=== PATIENT | male | born 1980 | race Caucasian/White ===

== ENCOUNTER 2016-11-19 11:43 | Emergency (ER) | payer OTHER ==
[~2016-11-19] VITALS: Ht 91.4 cm; Wt 53.9 kg
[~2016-11-19 11:43] MED LIST: ACETAMINOPHEN-1 EAC1 GT; ALBUTEROL S2 MG/5 ML GT; ALLERGY REL1 MG/1 ML GT; ANALGESIC325 MG G; Ascorbic Acid,Ester- PO; Aspirin E.C. PO; CARBAMAZEPINE100 MG PO; CORTEF5 MG GT; Claritin,Alavart GT; Cortef PO; DuoNeb IH; Folvite PO; HYDROCORTISONE5 MG PO; LEVOTHROID,SYN0.1 MG PO; LEVOXYL100 MCG GT; Levothroid,Synthroid GT; Lopressor GT; PHENOBARBI30 MG/7.5 GT; PHENOBARBI30 MG/7.5 PO; PHENOBARBITAL60 MG GT; PHENobarbital PO; PROVENTIL,VENTOL2 MG GT; Pepcid GT; Percocet 5/325,Endoc PO; Phenobarbital GT; RANITIDINE HCL150 MG GT; TEGRETOL GT; TEGRETOL100 MG GT; TEGRETOL100 MG PO; TEGretol PO; THERAGRAN5 ML GT; ZANTAC15 MG/ML GT; ZYRTEC GT; ZYRTEC SYRUP1 MG/ML GT; Zantac GT
[2016-11-19] MEDS ORDERED: OSMOLITE 1.2 C237 ML GT (12:01)
[2016-11-19] MEDS ORDERED: [UNRECOGNIZED DRUG - OTHER] GT (12:03)
[2016-11-19] MEDS ORDERED: NYSTATIN15 GM TP (12:04)
[2016-11-19] MEDS ORDERED: ASPIRIN81 M2 GT (12:05)
[2016-11-19] MEDS ORDERED: CERTA VITE9 MG/15 ML GT (12:05)
[2016-11-19] MEDS ORDERED: ALIGN4 MG GT (12:05)
[2016-11-19] MEDS ORDERED: FOLIC ACID1 MG GT (12:06)
[2016-11-19] MEDS ORDERED: CHILDREN'S5 MG/5 M1 GT (12:07)
[2016-11-19] MEDS ORDERED: PHENOBARBI30 MG/7.5 GT (12:08)
[2016-11-19] MEDS ORDERED: SIMVASTATIN40 MG GT (12:08)
[2016-11-19] MEDS ORDERED: VITAMIN D31000 UNIT GT (12:10)
[2016-11-19] MEDS ORDERED: HYDROCORTISONE10 MG GT (12:11)
[2016-11-19] MEDS ORDERED: METOPROLOL TART25 MG GT (12:13)
[2016-11-19] MEDS ORDERED: ASCORBIC ACID500 M3 GT (12:14)
[2016-11-19] MEDS ORDERED: TEGRETOL100 MG/5 M GT (12:16)
[2016-11-19] MEDS ORDERED: PREVACID SOLUTA30 MG GT (12:23)
[2016-11-19] MEDS ORDERED: LANSOPRAZOLE PO (13:09)
[2016-11-19 13:20] LABS: EOSINOPHIL (%) 1.9 % (0-5); EOSINOPHIL COUNT 0.1 K/uL (0-0.3); HEMATOCRIT 35.7 % (38.0-50.0); IMMATURE GRANULOCYTE (%) 0.4 % (0.0-0.7); INSTRUMENT ABS NEUTROPHIL CT 3.3 K/uL; LYMPHOCYTE COUNT 1.4 K/uL (1.0-2.8); MCH 33.6 PG (29.0-34.0); MCHC 34.7 G/DL (30.0-36.0); MCV 96.7 FL (86-99); MEAN PLAT.VOLUME 9.7 uM^3 (9.0-12.4); MONOCYTE (%) 7.1 % (3-12); MONOCYTE COUNT 0.4 K/uL (0-0.8); NEUTROPHIL (%) 62.7 % (45-76); NEUTROPHIL COUNT 3.3 K/uL (1.8-6.4); PLATELET COUNT 193 K/uL (156-360); RBC DIS.WIDTH-CV 11.2 % (11.8-14.6); RBC DIS.WIDTH-SD 40.1 % (39-53); RED BLOOD COUNT 3.69 M/uL (4.00-5.50); WHITE BLOOD COUNT 5.2 K/uL (4.1-10.2)
[2016-11-19 13:40] LABS: CHLORIDE 91 mEq/L (99-109); POTASSIUM 4.5 mEq/L (3.7-5.4); SODIUM 128 mEq/L (136-147)
[2016-11-19 13:42] LABS: GLUCOSE 106 mg/dL (70-99)
[2016-11-19 13:43] LABS: ANION GAP 15 MEQ/L (2-14)
[2016-11-19 13:44] LABS: TOTAL BILIRUBIN 0.2 mg/dL (0.0-1.0)
[2016-11-19 13:46] LABS: ALKALINE PHOSPHATASE 182 IU/L (3-129); GFR ESTIMATE (CALCULATED) > 59 mL/min/
[2016-11-19 13:47] LABS: UREA NITROGEN (BUN) 5 mg/dL (9-23)
[2016-11-19 13:49] LABS: LIPASE 21 U/L (1.0-51.0)
[2016-11-19 17:28] LABS: ADD MIUA? YES; BILIRUBIN NEGATIVE; BLOOD NEGATIVE; COLOR YELLOW ((YELLOW)); GLUCOSE (STRIP) NEGATIVE; KETONES NEGATIVE; LEUKOCYTES NEGATIVE; NITRITE NEGATIVE; PROTEIN (STRIP) NEGATIVE; SPECIFIC GRAVITY 1.011 (1.000-1.030); UROBILINOGEN 0.2 MG/DL (0.2-1.0)
[2016-11-19 17:58] LABS: BACTERIA RARE /HPF; EPITHELIAL CELLS NONE SEEN /HPF; MUCUS NONE SEEN /LPF; RED BLOOD CELLS 0-5 /HPF (0-5); WHITE BLOOD CELLS 0-5 /HPF (0-5)
[2016-11-19 18:43] VITALS: BP 114/88
== END 2016-11-19 18:43 | disposition home or self-care (01) ==
LOC: EME 11:43
PROVIDERS: Emergency Medicine
DX: R10.31 Right lower quadrant pain (principal); E23.0 Hypopituitarism; E87.1 Hypo-osmolality and hyponatremia; I69.320 Aphasia following cerebral infarction; Z93.1 Gastrostomy status; Z79.82 Long term (current) use of aspirin; Z88.0 Allergy status to penicillin
CPT/HCPCS: 71010; 74176; 80053; 81003; 83690; 85025; 99281; 99285

== ENCOUNTER 2017-03-05 22:59 | Emergency (ER) | payer OTHER ==
[~2017-03-05] VITALS: Ht 149.9 cm; Wt 48.2 kg
[~2017-03-05 22:59] MED LIST changes: +ALIGN4 MG GT; +ASCORBIC ACID500 M3 GT; +ASPIRIN81 M2 GT; +CERTA VITE9 MG/15 ML GT; +CHILDREN'S5 MG/5 M1 GT; +FOLIC ACID1 MG GT; +HYDROCORTISONE10 MG GT; +LANSOPRAZOLE PO; +METOPROLOL TART25 MG GT; +NYSTATIN15 GM TP; +OSMOLITE 1.2 C237 ML GT; +PREVACID SOLUTA30 MG GT; +SIMVASTATIN40 MG GT; +TEGRETOL100 MG/5 M GT; +VITAMIN D31000 UNIT GT; +[UNRECOGNIZED DRUG - OTHER] GT
[2017-03-06 00:23] VITALS: BP 113/70
== END 2017-03-06 00:24 | disposition home or self-care (01) ==
LOC: EME 22:59
PROC: 0D20XUZ Change Feeding Device in Upper Intestinal Tract, External Approach (ICD-10-PCS; principal; 2017-03-05)
DX: K94.23 Gastrostomy malfunction (principal); I69.320 Aphasia following cerebral infarction; I10 Essential (primary) hypertension; E78.5 Hyperlipidemia, unspecified; Z79.82 Long term (current) use of aspirin
CPT/HCPCS: 74018; 99281; 99283

== ENCOUNTER 2017-07-13 10:30 | Inpatient (IN) | payer OTHER ==
[~2017-07-13] VITALS: Ht 116.8 cm; Wt 56.2 kg
[~2017-07-13 10:30] MED LIST changes: -CHILDREN'S5 MG/5 M1 GT; +CHILDREN'S5 MG/5 M1 PO; +LANSOPRAZOLE GT; -LANSOPRAZOLE PO; +VITAMIN D31000 UNI2 GT; -VITAMIN D31000 UNIT GT
[2017-07-13 11:58] LABS: HEMATOCRIT 34.7 % (38.0-50.0); HEMOGLOBIN 12.5 G/DL (12.5-16.6); MCH 34.8 PG (29.0-34.0); MCV 96.7 FL (86-99); PLATELET COUNT 192 K/uL (156-360); RBC DIS.WIDTH-CV 11.4 % (11.8-14.6); RBC DIS.WIDTH-SD 40.6 % (39-53); RED BLOOD COUNT 3.59 M/uL (4.00-5.50); WHITE BLOOD COUNT 4.8 K/uL (4.1-10.2)
[2017-07-13 12:22] LABS: TROP-I INTERPRETATION NEGATIVE; TROPONIN-I < 0.01 ng/mL (0.0-0.30)
[2017-07-13 12:26] LABS: CHLORIDE 89 mEq/L (99-109); POTASSIUM 4.7 mEq/L (3.7-5.4); SODIUM 123 mEq/L (136-147)
[2017-07-13 12:27] LABS: GLUCOSE 109 mg/dL (70-99)
[2017-07-13 12:31] LABS: CREATININE 0.5 mg/dL (0.6-1.3); GFR ESTIMATE (CALCULATED) > 59 mL/min/ (58.99-99999)
[2017-07-13 12:32] LABS: UREA NITROGEN (BUN) 4 mg/dL (9-23)
[2017-07-13] MEDS ORDERED: SODIUM CHLORIDE1 G1 GT (13:41)
[2017-07-13] MEDS ORDERED: ALBUTEROL2.5 MG/3 M IH (13:48)
[2017-07-13] MEDS ORDERED: PAIN RELIE160 MG/52 GT (13:49)
[2017-07-13] MEDS ORDERED: ROBITUSSIN100 MG/5 M GT (13:50)
[2017-07-13 16:48] LABS: CARBON DIOXIDE (BICARBONATE) 27.7 MEQ/L (20-31)
[2017-07-13 18:30] VITALS: BP 134/70
[2017-07-13 20:26] VITALS: BP 103/44
[2017-07-13 21:13] LABS: CHLORIDE 87 MEQ/L (99-109); CREATININE 0.3 MG/DL (0.6-1.3); GFR ESTIMATE (CALCULATED) > 59 mL/min/ (58.99-99999); GLUCOSE 123 mg/dL (70-99); SODIUM 121 MEQ/L (136-147); UREA NITROGEN (BUN) 4 mg/dL (9-23)
[2017-07-13 21:18] LABS: POTASSIUM 3.7 MEQ/L (3.7-5.4)
[2017-07-14] VITALS (8 sets, daily range): BP systolic 100–126; BP diastolic 56–93
[2017-07-14 09:19] LABS: HEMATOCRIT 31.5 % (38.0-50.0); HEMOGLOBIN 10.8 G/DL (12.5-16.6); MCH 33.6 PG (29.0-34.0); MCHC 34.3 G/DL (30.0-36.0); MCV 98.1 FL (86-99); PLATELET COUNT 195 K/uL (156-360); RBC DIS.WIDTH-CV 11.5 % (11.8-14.6); RBC DIS.WIDTH-SD 41.4 % (39-53); RED BLOOD COUNT 3.21 M/uL (4.00-5.50); WHITE BLOOD COUNT 3.8 K/uL (4.1-10.2)
[2017-07-14 09:36] LABS: CHLORIDE 91 MEQ/L (99-109); CREATININE 0.3 MG/DL (0.6-1.3); GFR ESTIMATE (CALCULATED) > 59 mL/min/ (58.99-99999); GLUCOSE 120 mg/dL (70-99); POTASSIUM 3.9 MEQ/L (3.7-5.4); SODIUM 126 MEQ/L (136-147); UREA NITROGEN (BUN) 5 mg/dL (9-23)
[2017-07-15 04:03] VITALS: BP 119/61
[2017-07-15 06:57] LABS: CHLORIDE 93 MEQ/L (99-109); CREATININE 0.3 MG/DL (0.6-1.3); GFR ESTIMATE (CALCULATED) > 59 mL/min/ (58.99-99999); GLUCOSE 112 mg/dL (70-99); POTASSIUM 3.5 MEQ/L (3.7-5.4); SODIUM 125 MEQ/L (136-147); UREA NITROGEN (BUN) 5 mg/dL (9-23)
[2017-07-15 07:05] VITALS: BP 109/70
[2017-07-15 11:00] VITALS: BP 111/71
[2017-07-15 15:00] VITALS: BP 125/90
[2017-07-15 20:02] VITALS: BP 135/85
[2017-07-15 23:26] VITALS: BP 121/69
[2017-07-16 03:25] VITALS: BP 123/67
[2017-07-16 06:26] LABS: BASOPHIL (%) 0.5 % (0-1); EOSINOPHIL (%) 4.7 % (0-5); EOSINOPHIL COUNT 0.2 K/uL (0-0.3); HEMATOCRIT 31.1 % (38.0-50.0); HEMOGLOBIN 10.5 G/DL (12.5-16.6); IMMATURE GRANULOCYTE (%) 1.2 % (0.0-0.7); LYMPHOCYTE (%) 31.2 % (15-42); LYMPHOCYTE COUNT 1.3 K/uL (1.0-2.8); MCH 33.4 PG (29.0-34.0); MCHC 33.8 G/DL (30.0-36.0); MONOCYTE (%) 8.5 % (3-12); MONOCYTE COUNT 0.4 K/uL (0-0.8); NEUTROPHIL (%) 53.9 % (45-76); NEUTROPHIL COUNT 2.3 K/uL (1.8-6.4); PLATELET COUNT 227 K/uL (156-360); RBC DIS.WIDTH-CV 11.7 % (11.8-14.6); RBC DIS.WIDTH-SD 42.1 % (39-53); RED BLOOD COUNT 3.14 M/uL (4.00-5.50); WHITE BLOOD COUNT 4.3 K/uL (4.1-10.2)
[2017-07-16 06:56] LABS: CHLORIDE 94 MEQ/L (99-109); CREATININE 0.3 MG/DL (0.6-1.3); GFR ESTIMATE (CALCULATED) > 59 mL/min/ (58.99-99999); GLUCOSE 106 mg/dL (70-99); POTASSIUM 4.2 MEQ/L (3.7-5.4); SODIUM 129 MEQ/L (136-147); UREA NITROGEN (BUN) 4 mg/dL (9-23)
[2017-07-16 07:05] VITALS: BP 113/65
[2017-07-16 16:00] VITALS: BP 145/88
[2017-07-17 00:24] VITALS: BP 141/71
[2017-07-17 06:41] LABS: CHLORIDE 93 MEQ/L (99-109); CREATININE 0.3 MG/DL (0.6-1.3); GFR ESTIMATE (CALCULATED) > 59 mL/min/ (58.99-99999); GLUCOSE 115 mg/dL (70-99); POTASSIUM 4.2 MEQ/L (3.7-5.4); SODIUM 127 MEQ/L (136-147); UREA NITROGEN (BUN) 5 mg/dL (9-23)
[2017-07-17 07:10] VITALS: BP 115/78
[2017-07-17 16:00] VITALS: BP 138/64
[2017-07-18 00:56] VITALS: BP 113/78
[2017-07-18 06:14] LABS: CHLORIDE 91 MEQ/L (99-109); CREATININE 0.3 MG/DL (0.6-1.3); GFR ESTIMATE (CALCULATED) > 59 mL/min/ (58.99-99999); GLUCOSE 102 mg/dL (70-99); POTASSIUM 4.5 MEQ/L (3.7-5.4); SODIUM 126 MEQ/L (136-147); UREA NITROGEN (BUN) 7 mg/dL (9-23)
[2017-07-18 07:00] VITALS: BP 129/80
[2017-07-18 15:40] VITALS: BP 114/70
[2017-07-19 00:02] VITALS: BP 128/78
[2017-07-19 05:48] LABS: BASOPHIL (%) 0.5 % (0-1); EOSINOPHIL (%) 4.3 % (0-5); EOSINOPHIL COUNT 0.4 K/uL (0-0.3); HEMATOCRIT 32.9 % (38.0-50.0); HEMOGLOBIN 11.2 G/DL (12.5-16.6); IMMATURE GRANULOCYTE (%) 1.3 % (0.0-0.7); LYMPHOCYTE (%) 15.7 % (15-42); LYMPHOCYTE COUNT 1.4 K/uL (1.0-2.8); MCH 33.9 PG (29.0-34.0); MCV 99.7 FL (86-99); MONOCYTE (%) 7.5 % (3-12); MONOCYTE COUNT 0.7 K/uL (0-0.8); NEUTROPHIL (%) 70.7 % (45-76); NEUTROPHIL COUNT 6.2 K/uL (1.8-6.4); NRBC (%) 0.2 /100 WBC (0-0); RBC DIS.WIDTH-CV 12.1 % (11.8-14.6); RBC DIS.WIDTH-SD 43.8 % (39-53); WHITE BLOOD COUNT 8.8 K/uL (4.1-10.2)
[2017-07-19 05:49] LABS: PLATELET COUNT 309 K/uL (156-360)
[2017-07-19 06:23] LABS: CHLORIDE 88 MEQ/L (99-109); CREATININE 0.3 MG/DL (0.6-1.3); GFR ESTIMATE (CALCULATED) > 59 mL/min/ (58.99-99999); GLUCOSE 109 mg/dL (70-99); POTASSIUM 4.2 MEQ/L (3.7-5.4); SODIUM 122 MEQ/L (136-147); UREA NITROGEN (BUN) 5 mg/dL (9-23)
[2017-07-19 07:34] VITALS: BP 114/65
[2017-07-19 16:04] VITALS: BP 132/58
[2017-07-19 22:56] VITALS: BP 120/71
[2017-07-20 06:50] VITALS: BP 124/67
[2017-07-20 12:21] LABS: CHLORIDE 90 MEQ/L (99-109); CREATININE 0.4 MG/DL (0.6-1.3); GFR ESTIMATE (CALCULATED) > 59 mL/min/ (58.99-99999); GLUCOSE 103 mg/dL (70-99); POTASSIUM 4.6 MEQ/L (3.7-5.4); SODIUM 121 MEQ/L (136-147); UREA NITROGEN (BUN) 9 mg/dL (9-23)
[2017-07-20 15:20] VITALS: BP 120/71
[2017-07-21 00:43] VITALS: BP 114/62
[2017-07-21 06:34] LABS: BASOPHIL (%) 0.4 % (0-1); EOSINOPHIL (%) 2.7 % (0-5); EOSINOPHIL COUNT 0.2 K/uL (0-0.3); HEMATOCRIT 30.3 % (38.0-50.0); IMMATURE GRANULOCYTE (%) 1.3 % (0.0-0.7); LYMPHOCYTE COUNT 1.6 K/uL (1.0-2.8); MCH 33.4 PG (29.0-34.0); MCV 101.3 FL (86-99); MONOCYTE (%) 8.8 % (3-12); MONOCYTE COUNT 0.6 K/uL (0-0.8); NEUTROPHIL (%) 63.8 % (45-76); NEUTROPHIL COUNT 4.3 K/uL (1.8-6.4); PLATELET COUNT 289 K/uL (156-360); RBC DIS.WIDTH-CV 12.3 % (11.8-14.6); RBC DIS.WIDTH-SD 44.6 % (39-53); RED BLOOD COUNT 2.99 M/uL (4.00-5.50); WHITE BLOOD COUNT 6.7 K/uL (4.1-10.2)
[2017-07-21 07:01] LABS: CHLORIDE 90 MEQ/L (99-109); CREATININE 0.3 MG/DL (0.6-1.3); GFR ESTIMATE (CALCULATED) > 59 mL/min/ (58.99-99999); GLUCOSE 117 mg/dL (70-99); POTASSIUM 4.1 MEQ/L (3.7-5.4); SODIUM 126 MEQ/L (136-147); UREA NITROGEN (BUN) 6 mg/dL (9-23)
[2017-07-21 07:05] VITALS: BP 114/57
[2017-07-21 08:17] LABS: THYROTROPIN (TSH) 1.2 MIU/L (0.4-5.5)
[2017-07-21 10:32] LABS: HEPATITIS C ANTIBODY Nonreactive
[2017-07-21 15:45] VITALS: BP 166/86
[2017-07-22 00:17] VITALS: BP 145/81
[2017-07-22 05:55] LABS: BASOPHIL (%) 0.5 % (0-1); EOSINOPHIL (%) 3.5 % (0-5); EOSINOPHIL COUNT 0.2 K/uL (0-0.3); HEMATOCRIT 30.4 % (38.0-50.0); HEMOGLOBIN 10.5 G/DL (12.5-16.6); IMMATURE GRANULOCYTE (%) 1.1 % (0.0-0.7); LYMPHOCYTE (%) 21.7 % (15-42); LYMPHOCYTE COUNT 1.4 K/uL (1.0-2.8); MCH 34.7 PG (29.0-34.0); MCHC 34.5 G/DL (30.0-36.0); MCV 100.3 FL (86-99); MONOCYTE (%) 7.8 % (3-12); MONOCYTE COUNT 0.5 K/uL (0-0.8); NEUTROPHIL (%) 65.4 % (45-76); NEUTROPHIL COUNT 4.3 K/uL (1.8-6.4); NRBC (%) 0.3 /100 WBC (0-0); RBC DIS.WIDTH-CV 12.4 % (11.8-14.6); RBC DIS.WIDTH-SD 44.6 % (39-53); RED BLOOD COUNT 3.03 M/uL (4.00-5.50); WHITE BLOOD COUNT 6.5 K/uL (4.1-10.2)
[2017-07-22 06:16] LABS: CHLORIDE 91 MEQ/L (99-109); CREATININE 0.3 MG/DL (0.6-1.3); GFR ESTIMATE (CALCULATED) > 59 mL/min/ (58.99-99999); GLUCOSE 99 mg/dL (70-99); POTASSIUM 4.4 MEQ/L (3.7-5.4); SODIUM 127 MEQ/L (136-147); UREA NITROGEN (BUN) 7 mg/dL (9-23)
[2017-07-22 06:41] LABS: PLAT.SUFFICIENCY ADEQUATE; PLATELET COUNT 330 K/uL (156-360)
[2017-07-22 07:40] VITALS: BP 138/76
[2017-07-22 16:20] VITALS: BP 129/88
[2017-07-23 08:00] VITALS: BP 111/72
[2017-07-23 11:42] LABS: CHLORIDE 94 MEQ/L (99-109); CREATININE 0.3 MG/DL (0.6-1.3); GFR ESTIMATE (CALCULATED) > 59 mL/min/ (58.99-99999); GLUCOSE 117 mg/dL (70-99); POTASSIUM 4.8 MEQ/L (3.7-5.4); SODIUM 132 MEQ/L (136-147); UREA NITROGEN (BUN) 10 mg/dL (9-23)
[2017-07-23 23:47] VITALS: BP 123/79
[2017-07-24 06:35] LABS: BASOPHIL (%) 0.5 % (0-1); EOSINOPHIL (%) 7.3 % (0-5); EOSINOPHIL COUNT 0.5 K/uL (0-0.3); HEMATOCRIT 30.6 % (38.0-50.0); HEMOGLOBIN 10.2 G/DL (12.5-16.6); IMMATURE GRANULOCYTE (%) 0.8 % (0.0-0.7); LYMPHOCYTE (%) 22.5 % (15-42); LYMPHOCYTE COUNT 1.5 K/uL (1.0-2.8); MCH 33.9 PG (29.0-34.0); MCHC 33.3 G/DL (30.0-36.0); MCV 101.7 FL (86-99); MONOCYTE (%) 8.6 % (3-12); MONOCYTE COUNT 0.6 K/uL (0-0.8); NEUTROPHIL (%) 60.3 % (45-76); NEUTROPHIL COUNT 3.9 K/uL (1.8-6.4); PLATELET COUNT 367 K/uL (156-360); RBC DIS.WIDTH-CV 12.5 % (11.8-14.6); RED BLOOD COUNT 3.01 M/uL (4.00-5.50); WHITE BLOOD COUNT 6.5 K/uL (4.1-10.2)
[2017-07-24 06:59] LABS: CHLORIDE 91 MEQ/L (99-109); CREATININE 0.3 MG/DL (0.6-1.3); GFR ESTIMATE (CALCULATED) > 59 mL/min/ (58.99-99999); GLUCOSE 116 mg/dL (70-99); POTASSIUM 4.1 MEQ/L (3.7-5.4); SODIUM 131 MEQ/L (136-147); UREA NITROGEN (BUN) 11 mg/dL (9-23)
[2017-07-24 07:15] VITALS: BP 140/90
[2017-07-24] MEDS ORDERED: SODIUM CHLORIDE1 G1 GT (12:01)
[2017-07-24] MEDS ORDERED: FUROSEMIDE20 MG GT (12:03)
[2017-07-24 15:45] VITALS: BP 136/92
== END 2017-07-24 20:56 | disposition home or self-care (01) | DRG 641 ==
LOC: EME 10:30 → 5EAST 13:45 → EDOF 13:45 → ENRESERV 13:47 → 5EAST 16:46
PROVIDERS: Emergency Medicine; Family Medicine Sports Medicine; Hospitalist; Internal Medicine Nephrology
DX: E87.1 Hypo-osmolality and hyponatremia (principal); T50.995A Adverse effect of other drugs, medicaments and biological substances, initial encounter; G80.9 Cerebral palsy, unspecified; E22.2 Syndrome of inappropriate secretion of antidiuretic hormone; G40.909 Epilepsy, unspecified, not intractable, without status epilepticus; J45.909 Unspecified asthma, uncomplicated; Z99.3 Dependence on wheelchair; K21.9 Gastro-esophageal reflux disease without esophagitis; K94.23 Gastrostomy malfunction; E23.0 Hypopituitarism; D64.9 Anemia, unspecified; I69.320 Aphasia following cerebral infarction; E66.01 Morbid (severe) obesity due to excess calories; Z68.41 Body mass index [BMI] 40.0-44.9, adult; F72 Severe intellectual disabilities
CPT/HCPCS: 31720; 70470; 71045; 71046; 76705; 80048; 80048 91; 82436; 82803; 82948; 83605; 83880; 83930; 83935; 84133; 84295; 84300; 84443; 84484; 85025; 85027; 86803; 87040; 87070; 87205; 93005; 94640; 94640 76; 94799; 95819; 99202; 99281; 99285; J1650; J1940; J7030